=== PATIENT | male | born 1945 | race Caucasian/White ===

== ENCOUNTER 2017-08-08 08:05 | Day surgery (SDC) | payer BC ==
[~2017-08-08 08:05] MED LIST: Lactated Ringers 1,000 ML IV SCH
[2017-08-08] MEDS ORDERED: DIPRIVAN 200 MG/20 ML IV ONE (08:06)
[2017-08-08] MEDS ORDERED: Ketamine HCl 50 MG/ML IJ ONE (08:06)
--- NOTE | 2017-08-08 08:06 | HP ---
DATE OF SURGERY: 08/08/2017 HISTORY OF PRESENT ILLNESS: The patient is a 72 year-old with history of hypertension, chronic obstructive pulmonary disease and hypothyroidism. 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 PAST MEDICAL HISTORY: Chronic obstructive pulmonary disease, hypertension, hypothyroidism. MEDICATIONS: He takes blood pressure medication, aspirin, thyroid medication. ALLERGIES: NKDA. PAST SURGICAL HISTORY: Cholecystectomy, lymph node biopsy. He had a port placement in the past. FAMILY HISTORY: Heart disease. SOCIAL HISTORY: History of smoking in the past, denied alcohol abuse. REVIEW OF SYSTEMS: Twelve systems reviewed per admission assessment. No chest pain or palpitations other systems negative or noncontributory as above and per preadmission questionnaire. PHYSICAL EXAMINATION: GENERAL: No acute distress. HEENT: Sclerae nonicteric. NECK: No JVD. CHEST: Equal excursion, nonlabored breathing. Port site is okay. CVS: Regular rate and rhythm. ABDOMEN: Soft, nontender. EXTREMITIES: No significant edema. NEURO: Alert, moving extremities symmetrically. No gross motor deficits noted. 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 He has undergone treatment and is no longer using his port and desires removal. I feel he is a candidate. Risks and benefits explained in detail but not limited to bleeding or infection, risk of hematoma, seroma formation, general risk of anesthesia, deep venous thrombosis, pulmonary embolism or pneumonia but not limited to. He understands and agrees to the planned procedure. We will proceed with outpatient Port-A-Cath removal under IV sedation and MAC anesthesia.
[2017-08-08] MEDS ORDERED: Sensorcaine 0.25% 10 ML ONE (08:25)
[2017-08-08] MEDS ORDERED: Sodium Chloride 0.9% 500 ML 500 ML IV SCH (08:45)
[2017-08-08 12:26] VITALS: BP 167/88; O2SAT 99
[2017-08-08 12:28] VITALS: PULSE 68
--- NOTE | 2017-08-08 15:23 | OP ---
SURGERY DATE/TIME: 08/08/2017 1044 PREOPERATIVE DIAGNOSIS: History of head and neck cancer status post treatment with chemotherapy now with no longer desired port as he is done with treatments. POSTOPERATIVE DIAGNOSIS: History of head and neck cancer status post treatment with chemotherapy now with no longer desired port as he is done with treatments. PROCEDURE: Removal of tunnel Port-A-Cath. SURGEON: Dr. Domenico Hoffman. ANESTHESIA: MAC, 1% lidocaine local. ESTIMATED BLOOD LOSS: Minimal. INDICATIONS: As noted above. Risks and benefits explained in detail and not limited to and consent obtained. DESCRIPTION OF PROCEDURE AND FINDINGS: The patient is taken to the operating room. MAC anesthesia introduced. After official time out and no disagreement with planned procedure, chest prepped and draped in usual sterile fashion. 1% lidocaine local infiltrated in field pattern around the area dissection carried down through the old scar. Dissection carried down. Sutures were carefully freed, removed and passed off allowing the port to mobilized upwards. The port and the catheter removed intact. It did appear that the entire length of the catheter was present and pass off. Tunnel track closed with 3-0 Vicryl. Fibrous pocket closed with 3-0 Vicryl, subcu closed with 3-0 Vicryl, skin closed with 4-0 Vicryl. Steri-strips and sterile dressings applied. 0.25% Marcaine local injected along the skin incision fascia defect. The patient tolerated the procedure well. There were no immediate complications. Findings were discussed with the family out in the waiting area.
== END 2017-08-08 12:15 | disposition home or self-care (01) ==
LOC: SDC 08:05
PROVIDERS: ATTEND Surgery
PROC: 05H633Z Insertion of Infusion Device into Left Subclavian Vein, Percutaneous Approach (ICD-10-PCS; principal; 2017-08-08)
DX: Z45.2 Encounter for adjustment and management of vascular access device (principal); Z85.79 Personal history of other malignant neoplasms of lymphoid, hematopoietic and related tissues
CPT/HCPCS: 99100; J2704

== ENCOUNTER 2022-12-13 12:03 | Emergency (ER) | payer MEDICARE ==
--- NOTE | 2022-12-13 12:19 | ERPHSYRPT ---
- History of Present Illness Time Seen by Provider: 12/13/22 12:18 Source: patient Exam Limitations: no limitations Physician History: This is a 77-year-old white male patient of Dr. Calderón who presents with 3 to 4- day history of a 3 out of 10 headache that is global in its location and achy in its description. In addition he has had difficulty getting his thoughts and "bearings". He denies any acute trauma to the head. There is been no new medications per his report. Patient does have a history of hypertension and hypothyroidism. Patient has not had a fever or cough. Timing/Duration: day(s) (3 to 4) Quality: aching Head Pain Location: global Severity of Pain-Max: mild Severity of Pain-Current: mild Recent Head Trauma: no recent headache/trauma Associated Symptoms: confusion, nausea/vomiting, No dizziness, No light- headedness, No loss of consciousness Previous symptoms: no prior history Allergies/Adverse Reactions: No Known Drug Allergies Allergy (Verified 12/13/22 12:31) Home Medications: Levothyroxine Sodium 75 Mcg [Synthroid 75 Mcg] 75 mcg PO DAILY 08/03/17 [History] Metoprolol Succinate [Toprol Xl] 25 mg PO DAILY 08/08/17 [History] Amlodipine Besylate 2.5 mg PO BID 12/13/22 [History] Hx Influenza Vaccination/Date Given: (2012) Hx Pneumococcal Vaccination/Date Given: Yes (2010 ?) Travel Risk - International Travel Have you traveled outside of the country in past 3 weeks: No - Coronavirus Screening Are you exhibiting any of the following symptoms?: No Close contact with a COVID-19 positive Pt in past 14-21 Days: No - Review of Systems Constitutional: No Symptoms Eyes: No Symptoms Ears, Nose, & Throat: No Symptoms Respiratory: No Symptoms Cardiac: No Symptoms Abdominal/Gastrointestinal: No Symptoms Genitourinary Symptoms: No Symptoms Musculoskeletal: No Symptoms Skin: No Symptoms Neurological: Other (Intermittent, mild confusion) Psychological: No Symptoms Endocrine: No Symptoms Hematologic/Lymphatic: No Symptoms Immunological/Allergic: No Symptoms All Other Systems: Reviewed and Negative - Past Medical History Pertinent Past Medical History: Yes Neurological History: No Pertinent History, Peripheral Neuropathy ENT History: Cataracts, Other Cardiac History: Hypertension Respiratory History: Emphysema Endocrine Medical History: Hypothyroidism Musculoskeletal History: No Pertinent History GI Medical History: Gallbladder Disease, Hemorrhoids History: Renal Disease Psycho-Social History: No Pertinent History Male Reproductive Disorders: No Pertinent History Other Medical History: sinus problems, 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 - Past Surgical History Past Surgical History: Yes Neuro Surgical History: No Pertinent History Cardiac: No Pertinent History Respiratory: No Pertinent History Gastrointestinal: Cholecystectomy Genitourinary: No Pertinent History Musculoskeletal: Orthopedic Surgery Male Surgical History: No Pertinent History Other Surgical History: peg tube, port placement, lumbar surgery, hx tongue cancer - radiation and chemotherapy - Social History Smoking Status: Current every day smoker How long have you smoked: states 66 Exposure to second hand smoke: Yes Drug Use: none - Nursing Vital Signs Nursing Vital Signs: Initial Vital Signs Temperature 98 F 12/13/22 12:16 Pulse Rate 79 12/13/22 12:16 Respiratory Rate 18 12/13/22 12:16 Blood Pressure 191/91 12/13/22 12:16 O2 Sat by Pulse Oximetry 97 12/13/22 12:16 Pain Scale Pain Intensity 3 - Physical Exam General Appearance: no apparent distress, alert, anxiety Eye Exam: PERRL/EOMI, eyes nml inspection Ears, Nose, Throat Exam: normal ENT inspection, moist mucous membranes Neck Exam: normal inspection, non-tender, supple, full range of motion Respiratory Exam: normal breath sounds, lungs clear, airway intact, No chest tenderness, No respiratory distress Cardiovascular Exam: regular rate/rhythm, normal heart sounds, normal peripheral pulses Gastrointestinal/Abdominal Exam: soft, normal bowel sounds, No tenderness Back Exam: normal inspection, normal range of motion, No CVA tenderness, No vertebral tenderness Extremity Exam: normal inspection, normal range of motion, pelvis stable Mental Status Exam: alert, oriented x 3, cooperative assembler finger buffs Exam: normal hearing, normal speech, PERRL Coordination/Gait Exam: normal finger to nose, normal gait, normal cerebellar function Motor/Sensory Exam: no motor deficit, no sensory deficit, no pronator drift Skin Exam: normal color, warm, dry Lymphatic Exam: No adenopathy SpO2 Interpretation: normal O2 Delivery: Room Air - Course Nursing assessment & vital signs reviewed: Yes EKG Interpreted by Me: RATE (74), Sinus Rhythm, NORMAL AXIS, NORMAL INTERVALS, NORMAL QRS, NORMAL ST-T, Other (No acute ischemic changes on today's twelve-lead EKG.) Ordered Tests: Active Orders 24 hr Category Date Time Status Hospitality Specialist STAT Care 12/13/22 12:27 Active EKG-ER Only STAT Care 12/13/22 12:26 Active IV Insertion STAT Care 12/13/22 12:26 Active NPO (ED) STAT Care 12/13/22 12:26 Active POCT Glucose Check STAT Care 12/13/22 12:26 Active Pulse Oximetry (ED) STAT Care 12/13/22 12:26 Active HEAD WITHOUT CONTRAST [CT] Stat Exams 12/13/22 12:26 Completed CBC W DIFF Stat Lab 12/13/22 12:37 Completed CMP Stat Lab 12/13/22 12:37 Completed T4 (Thyroxine) Stat Lab 12/13/22 12:43 Completed TSH [TSH, 3RD Generation] Stat Lab 12/13/22 12:43 Completed UA W/RFX UR CULTURE Stat Lab 12/13/22 13:29 Completed Lab/Rad Data: Laboratory Result Diagrams 12/13/22 12:37 12/13/22 12:37 Laboratory Results 12/13/22 12/13/22 12/13/22 Range/Units 13:29 12:43 12:37 WBC (4.0-10.5) x10^3/uL RBC (4.1-5.6) x10^6/uL Hgb (12.5-18.0) g/dL Hct (42-50) % MCV (78-100) fL MCH (26-32) pg MCHC (32-36) g/dL RDW (11.5-14.0) % Plt Count (150-450) x10^3/uL MPV (7.5-11.0) fL Gran % (36.0-66.0) % Immature Gran % (Auto) (0.00-0.4) % Nucleat RBC Rel Count (0.00-0.1) % Eos # (Auto) (0-0.5) x10^3/uL Immature Gran # (Auto) (0.00-0.03) x10^3u/L Absolute Lymphs (auto) (1.0-4.6) x10^3/uL Absolute Monos (auto) (0.0-1.3) x10^3/uL Absolute Nucleated RBC (0.00-0.01) x10^3u/L Lymphocytes % (24.0-44.0) % Monocytes % (0.0-12.0) % Eosinophils % (0.00-5.0) % Basophils % (0.0-0.4) % Absolute Granulocytes (1.4-6.9) x10^3/uL Basophils # (0-0.4) x10^3/uL Sodium 138 (137-145) mmol/L Potassium 4.3 (3.5-5.1) mmol/L Chloride 102 (98-107) mmol/L Carbon Dioxide 27 (22-30) mmol/L Anion Gap 13.0 (5-15) MEQ/L BUN 22 H (9-20) mg/dL Creatinine 1.56 H (0.66-1.25) mg/dL Estimated GFR 46.2 ML/MIN Glucose 103 (74-106) mg/dL Calcium 9.1 (8.4-10.2) mg/dL Total Bilirubin 0.70 (0.2-1.3) mg/dL AST 18 (17-59) U/L ALT 16 (0-50) U/L Alkaline Phosphatase 115 (38-126) U/L Serum Total Protein 8.0 (6.3-8.2) g/dL Albumin 4.3 (3.5-5.0) g/dL Thyroxine (T4) 10.7 (5.53-10.96) ug/dL TSH 3rd Generation 2.250 (0.47-4.68) mIU/L Urine Color Yellow (Yellow) Urine Appearance Clear (Clear) Urine pH 5.5 (4.6-8.0) Ur Specific [place] 1.015 (1.005-1.030) Urine Protein Trace A (Negative) Urine Glucose (UA) Negative (Negative) mg/dL Urine Ketones Negative (Negative) Urine Blood Negative (Negative) Urine Nitrite Negative (Negative) Urine Bilirubin Negative (Negative) Urine Urobilinogen 0.2 (0.2) mg/dL Ur Leukocyte Esterase Negative (Negative) U Hyaline Cast (Auto) NONE SEEN (0-2) /LPF Urine Microscopic RBC 0-2 (0-5) /HPF Urine Microscopic WBC 0-2 (0-5) /HPF Ur Epithelial Cells None Seen (None Seen) /HPF Urine Bacteria None Seen (None Seen) /HPF Urine Culture Reflexed NO (NO) 07/24/ Range/Units 12:37 WBC 9.1 (4.0-10.5) x10^3/uL RBC 4.91 (4.1-5.6) x10^6/uL Hgb 15.0 (12.5-18.0) g/dL Hct 44.0 (42-50) % MCV 89.6 (78-100) fL MCH 30.5 (26-32) pg MCHC 34.1 (32-36) g/dL RDW 12.6 (11.5-14.0) % Plt Count 212 (150-450) x10^3/uL MPV 10.0 (7.5-11.0) fL Gran % 71.5 H (36.0-66.0) % Immature Gran % (Auto) 0.3 (0.00-0.4) % Nucleat RBC Rel Count 0.0 (0.00-0.1) % Eos # (Auto) 0.23 (0-0.5) x10^3/uL Immature Gran # (Auto) 0.03 (0.00-0.03) x10^3u/L Absolute Lymphs (auto) 1.77 (1.0-4.6) x10^3/uL Absolute Monos (auto) 0.54 (0.0-1.3) x10^3/uL Absolute Nucleated RBC 0.00 (0.00-0.01) x10^3u/L Lymphocytes % 19.4 L (24.0-44.0) % Monocytes % 5.9 (0.0-12.0) % Eosinophils % 2.5 (0.00-5.0) % Basophils % 0.4 (0.0-0.4) % Absolute Granulocytes 6.51 (1.4-6.9) x10^3/uL Basophils # 0.04 (0-0.4) x10^3/uL Sodium (137-145) mmol/L Potassium (3.5-5.1) mmol/L Chloride (98-107) mmol/L Carbon Dioxide (22-30) mmol/L Anion Gap (5-15) MEQ/L BUN (9-20) mg/dL Creatinine (0.66-1.25) mg/dL Estimated GFR ML/MIN Glucose (74-106) mg/dL Calcium (8.4-10.2) mg/dL Total Bilirubin (0.2-1.3) mg/dL AST (17-59) U/L ALT (0-50) U/L Alkaline Phosphatase (38-126) U/L Serum Total Protein (6.3-8.2) g/dL Albumin (3.5-5.0) g/dL Thyroxine (T4) (5.53-10.96) ug/dL TSH 3rd Generation (0.47-4.68) mIU/L Urine Color (Yellow) Urine Appearance (Clear) Urine pH (4.6-8.0) Ur Specific [place] (1.005-1.030) Urine Protein (Negative) Urine Glucose (UA) (Negative) mg/dL Urine Ketones (Negative) Urine Blood (Negative) Urine Nitrite (Negative) Urine Bilirubin (Negative) Urine Urobilinogen (0.2) mg/dL Ur Leukocyte Esterase (Negative) U Hyaline Cast (Auto) (0-2) /LPF Urine Microscopic RBC (0-5) /HPF Urine Microscopic WBC (0-5) /HPF Ur Epithelial Cells (None Seen) /HPF Urine Bacteria (None Seen) /HPF Urine Culture Reflexed (NO) - Progress Progress: re-examined, unchanged Air Movement: good Progress Note: 12/13/22 13:[address] scan of the head without contrast was read by the radiologist and I reviewed the impression. There is global atrophy which is age-appropriate as well as degenerative microischemia present. It is a nonacute senile brain study. This patient medical issue is 1 of moderate complexity. The level complexity and the work-up performed is based on review of the patient's past medical history, review of the patient's medication list, review of the patient's drug allergy list, history of present illness and physical findings on examination. In this patient, we ordered a CT scan of the head without contrast, CBC, CMP, urinalysis, twelve-lead EKG, T4, TSH studies. We are awaiting the results of these laboratory studies. 12/13/22 14:41 I reviewed the results of the above work-up. There is no evidence of any acute, emergent medical issue today. Patient will be referred back to his primary care provider. They are to call the provider today to make arranges for follow-up appointment in the next 3 to 5 days. Blood Culture(s) Obtained: No Counseled pt/family regarding: lab results, diagnosis, need for follow-up, rad results Medical Desision Making - Independent Historian Additional History obtained from: Spouse - Diagnostic Testing Diagnostic test were ordered, analyzed, and reviewed by me: Yes Radiological Interpretation: Reviewed by me, Teleradiologist Report - Risk of complications Low Risk: Low risk of morbidity from additional dx testing or treatment - Departure Departure Disposition: Home Clinical Impression: Confusion, Headache Condition: Stable Critical Care Time: No Referrals: YONAS VALENCIA MD [Primary Care Provider] - Follow up/PCP as directed Additional Instructions: Drink plenty of fluids. Take your medication as prescribed. Call your primary care provider today to make arrange for follow-up appointment and possible referral to a neurologist if indicated.
[2022-12-13 12:31] VITALS: TEMP 98
[2022-12-13 12:38] LABS: Absolute Neutrophil Ct (ANC) 6.51 x10^3/uL (1.4-6.9); BASOPHIL % 0.4 % (0.0-0.4); Basophil (Absolute #) 0.04 x10^3/uL (0-0.4); Eosinophil % 2.5 % (0.00-5.0); Eosinophil (Absolute #) 0.23 x10^3/uL (0-0.5); IMMATURE GRAN # 0.03 x10^3u/L (0.00-0.03); IMMATURE GRAN % 0.3 % (0.00-0.4); Lymphocyte (Absolute #) 1.77 x10^3/uL (1.0-4.6); Lymphocytes % 19.4 % (24.0-44.0); Mean Cell Volume 89.6 fL (78-100); Mean Corpuscular Hemoglobin 30.5 pg (26-32); Mean Corpuscular Hgb Concent. 34.1 g/dL (32-36); Monocyte (Absolute #) 0.54 x10^3/uL (0.0-1.3); Monocytes % 5.9 % (0.0-12.0); Neutrophil % 71.5 % (36.0-66.0); Platelet Count 212 x10^3/uL (150-450); Red Blood Count 4.91 x10^6/uL (4.1-5.6); Red Cell Distribution Width 12.6 % (11.5-14.0); White Blood Count 9.1 x10^3/uL (4.0-10.5)
--- NOTE | 2022-12-13 12:52 | XRAY ---
Indication: Headache, dizziness, confusion. Multiple contiguous axial images obtained through the head without contrast. Comparison: None Age-appropriate global atrophy and minimal periventricular degenerative micro-ischemia. No acute intracranial hemorrhage, abnormal extra-axial fluid collection, or mass effect. Fourth ventricle is midline without hydrocephalus. Santamaria-white matter differentiation preserved. Bony calvarium intact.. Visualized paranasal sinuses and mastoid air cells are clear. Impression: Nonacute senile brain..
[2022-12-13 12:55] LABS: ALBUMIN 4.3 g/dL (3.5-5.0); BILIRUBIN,TOTAL 0.7 mg/dL (0.2-1.3); Calcium 9.1 mg/dL (8.4-10.2); Creatinine 1 1.56 mg/dL (0.66-1.25); EST GLOMERULAR FILTRATION RATE 46.2 ML/MIN; Potassium 4.3 mmol/L (3.5-5.1)
[2022-12-13 13:33] LABS: T4 (Thyroxine) 10.7 ug/dL (5.53-10.96); TSH, 3RD Generation 2.25 mIU/L (0.47-4.68)
[2022-12-13 14:15] VITALS: BP 172/74; PULSE 74
[2022-12-13 14:27] LABS: Appearance Clear (Clear); Bacteria None Seen /HPF (None Seen); Bilirubin Negative (Negative); Blood Negative (Negative); Epithelial Cells None Seen /HPF (None Seen); Glucose, Urine Negative (Negative); Hyaline Casts NONE SEEN /LPF (0-2); Ketones Negative (Negative); Leukocyte Esterase Negative (Negative); Nitrite Negative (Negative); Ph 5.5 (4.6-8.0); Protein,Urine Dip Trace (Negative); RBC 0-2 /HPF (0-5); Specific Gravity 1.015 (1.005-1.030); Urobilinogen 0.2 mg/dL (0.2); WBC 0-2 /HPF (0-5)
[2022-12-13 14:33] LABS: ADD URINE CULTURE? NO (NO)
[2022-12-13 15:07] VITALS: RESP 17; O2SAT 94
== END 2022-12-13 15:07 | disposition home or self-care (01) ==
LOC: ED 12:03
DX: R51.9 Headache, unspecified (principal); R41.0 Disorientation, unspecified; I10 Essential (primary) hypertension; Z79.899 Other long term (current) drug therapy; Z72.0 Tobacco use
CPT/HCPCS: 36000; 36415; 70450; 80053; 81001; 84436; 84443; 85025; 93005; 93041; 94760; 99284